=== PATIENT | male | born 1985 | race Caucasian/White ===

== ENCOUNTER → 2019-09-08 | Outpatient (CLI) | payer OTHER ==
--- NOTE | 2019-09-08 10:28 | XR ---
Right shoulder HISTORY: Right shoulder pain 3 views of the right shoulder Bone mineralization, joint spaces and alignment are maintained. Right lung apex as visualized is norm al. IMPRESSION: No fracture or dislocation.
== END | disposition home or self-care (01) ==
LOC: RADXRMAIN 10:06
PROVIDERS: ATTEND Emergency Medicine
DX: S46.811A Strain of other muscles, fascia and tendons at shoulder and upper arm level, right arm, initial encounter (principal)

== ENCOUNTER → 2019-09-16 | Outpatient (CLI) | payer OTHER ==
--- NOTE | 2019-09-16 22:41 | MR ---
EXAMINATION TYPE: MR shoulder RT wo con DATE OF EXAM: 09/16/2019 COMPARISON: X-ray 09/08/2019 HISTORY: Right shoulder pain, injury at work. TECHNIQUE: Multiplanar, multisequence imaging of the right shoulder is performed without contrast. FINDINGS: Rotator Cuff: No evidence of rotator cuff tear. There is a trace amount of fluid in the subacromial b ursa. Mild bursal scuffing noted of the supraspinatus tendon. Acromioclavicular Joint: AC joint is maintained. No evidence of erosive change. Small amount of edema within the AC joint may represent an AC joint strain. Glenohumeral Joint: Joint space preserved. No sizable joint effusion. Glenohumeral ligaments intact. Labrum: The labrum appears grossly intact given limitation of non-arthrogram study. Biceps Tendon: The long head of biceps is in normal location within bicipital groove. Bone marrow signal: No focal abnormal marrow signal is appreciated. IMPRESSION: 1. Trace amount of fluid in the subacromial bursa with bursal scuffing along the distal margin of the supraspinatus tendon. Mild increased signal at the insertion of the infraspinatus tendon compatible with mild tendinosis. 2. There is a small amount of edema within the AC joint can be associated with an AC joint strain.
== END | disposition home or self-care (01) ==
LOC: RADMRIMAIN 21:43
PROVIDERS: ATTEND Emergency Medicine
DX: S46.811D Strain of other muscles, fascia and tendons at shoulder and upper arm level, right arm, subsequent encounter (principal)